=== PATIENT | male | born 1970 ===

== ENCOUNTER 2024-02-01 15:59 | Outpatient (RCR) | payer OTHER, SELFPAY ==
[2024-02-01 14:02] LABS: Glucose - Point of Care 110 mg/dl (70-99)
[2024-02-01 14:52] LABS: Glucose - Point of Care 88 mg/dl (70-99)
== END 2024-02-01 23:59 | disposition home or self-care (01) ==
LOC: CRHB 15:59
PROVIDERS: ATTENDING PHYSICIAN Internal Medicine Interventional Cardiology; FAMILY PHYSICIAN Internal Medicine
DX: I25.10 Atherosclerotic heart disease of native coronary artery without angina pectoris (principal); Z95.5 Presence of coronary angioplasty implant and graft
CPT/HCPCS: 82962; 93798

== ENCOUNTER 2024-02-22 14:56 | Outpatient (RCR) | payer OTHER, SELFPAY | END 2024-02-22 23:59 | disposition home or self-care (01) | LOC: CRHB 14:56 | PROVIDERS: ATTENDING PHYSICIAN Internal Medicine Interventional Cardiology; FAMILY PHYSICIAN Internal Medicine | DX: I25.10 Atherosclerotic heart disease of native coronary artery without angina pectoris (principal); Z95.5 Presence of coronary angioplasty implant and graft | CPT/HCPCS: 93797; 93798 ==